=== PATIENT | female | born 1970 | race Caucasian/White ===

== ENCOUNTER 2019-03-13 21:09 | Emergency (ER) | payer BC ==
[~2019-03-13] VITALS: Ht 152.4 cm; Wt 45.4 kg
--- NOTE | 2019-03-13 21:17 | NUR ---
TO LOBBY A/W BED AMBULATORY
[2019-03-13 21:20] VITALS: BP 146/53
--- NOTE | 2019-03-13 21:30 | NUR ---
PT AMBULATED TO ER BED 03
--- NOTE | 2019-03-13 21:41 | NUR ---
48 Y/O F PRESENTS TO ED WITH C/O N/V, COMER, DIZZINESS, AND PALPITATIONS SINCE 1200. PT HAD ONE EPISODE OF VOMITTING. PT REPORTS SYMPTOMS STATING S/P INGESTION OF AGELOC YOUTH PILLS. PT BROUGHT IN BOTTLE OF MEDICATION, BOTTLE SHOWED EXPIRATION DATE OF 02/2017. AUSCULATED HEART SOUNDS HAD REGULAR RATE AND RHYTHM. PT LYING FLAT IN BED. FAMILY BEDSIDE. BEDRAILX1 UP. WILL CONTINUE TO MONITOR.
--- NOTE | 2019-03-13 22:52 | NUR ---
DR. RED AT BEDSIDE FOR INTIAL EVALUTATION OF PT.
[2019-03-13] MEDS ORDERED: diphenhydrAMINE 50 MG/ML VIAL IM ONE (23:00)
[2019-03-13] MEDS ORDERED: PROCHLORPERAZINE 10 MG/2 ML VIAL IM ONE (23:00)
--- NOTE | 2019-03-14 00:13 | NUR ---
PT SEEN WITH EYES CLOSED. PT AROUSABLE TO VOICE. PT VERBALIZES THAT SHE IS FEELING BETTER. DR. RED MADE AWARE.
[2019-03-14 00:15] VITALS: BP 115/74
--- NOTE | 2019-03-14 00:30 | NUR ---
Patient discharged with v/s stable. Written and verbal after care instructions given and explained. Patient alert, oriented and verbalized understanding of instructions. Ambulatory with steady gait. All questions addressed prior to discharge. ID band removed. Patient advised to follow up with PMD. Rx of benadryl and compazine given. Patient educated on indication of medication including possible reaction and side effects. Opportunity to ask questions provided and answered.
== END 2019-03-14 00:30 | disposition home or self-care (01) ==
LOC: MED 21:09
DX: R51 Headache (principal); R11.0 Nausea
CPT/HCPCS: 96372; 99283; J0780; J1200